=== PATIENT | male | born 1950 | race Caucasian/White ===

== ENCOUNTER 2021-05-04 06:05 | Day surgery (SDC) | payer MEDICARE ==
[~2021-05-04] VITALS: Ht 182.9 cm; Wt 93.2 kg
[2021-05-04] MEDS ORDERED: HYDR1TAB53 PO (06:46)
[2021-05-04] MEDS ORDERED: VERA120T13 PO (06:46)
[2021-05-04] MEDS ORDERED: PANT40TA6 PO (06:46)
[2021-05-04] MEDS ORDERED: WARF3TAB52 PO (06:46)
[2021-05-04] MEDS ORDERED: SUCR1TAB PO (06:46)
[2021-05-04] MEDS ORDERED: BISO1TAB93 PO (06:46)
[2021-05-04] MEDS ORDERED: DOXA1TAB2 PO (06:46)
[2021-05-04] MEDS ORDERED: ATOR40TA78 PO (06:46)
[2021-05-04 06:49] VITALS: BP 158/104
[2021-05-04 07:11] LABS: ANION GAP 9 mmol/L (5-15); CALCIUM 8.6 mg/dL (8.5-10.1); CHLORIDE 110 mmol/L (98-107); CREATININE 1.13 mg/dL (0.7-1.3)
[2021-05-04 07:18] LABS: INTERNATIONAL NORMALIZED RATIO 2.05 (0.93-1.1); PROTHROMBIN TIME 21.6 Seconds (9.6-11.5)
[2021-05-04] MEDS ORDERED: PROPOFOL 10 MG/ML, 20ML ONE (08:26)
== END 2021-05-04 09:41 | disposition home or self-care (01) ==
LOC: CACL 06:05
PROVIDERS: ATTEND Internal Medicine Cardiovascular Disease
DX: I48.91 Unspecified atrial fibrillation (principal); I08.1 Rheumatic disorders of both mitral and tricuspid valves; I70.0 Atherosclerosis of aorta; I10 Essential (primary) hypertension; E78.5 Hyperlipidemia, unspecified; K21.9 Gastro-esophageal reflux disease without esophagitis; Z20.822 Contact with and (suspected) exposure to COVID-19; Z79.01 Long term (current) use of anticoagulants; Z79.891 Long term (current) use of opiate analgesic; Z79.899 Other long term (current) drug therapy; Z87.891 Personal history of nicotine dependence; Z83.42 Family history of familial hypercholesterolemia
CPT/HCPCS: 36415; 80048; 85610; 87635; 92960; 93005; 93312; 93321; 93325; J2704